=== PATIENT | male | born 1990 | race Caucasian/White ===

== ENCOUNTER 2018-03-29 | Emergency (ER) | payer MEDICAID | END 2018-03-29 12:36 | disposition home or self-care (01) | DX: L08.9 Local infection of the skin and subcutaneous tissue, unspecified (principal); S90.822D Blister (nonthermal), left foot, subsequent encounter; F19.90 Other psychoactive substance use, unspecified, uncomplicated; F17.210 Nicotine dependence, cigarettes, uncomplicated; Z59.0 Homelessness ==

== ENCOUNTER 2018-03-30 | Emergency (ER) | payer MEDICAID | END 2018-03-30 18:00 | disposition home or self-care (01) ==